=== PATIENT | female | born 1995 | race African-American/Black ===

== ENCOUNTER 2021-11-02 09:10 | Emergency (ER) | payer SELFPAY ==
[~2021-11-02] VITALS: Ht 157.5 cm; Wt 60.0 kg
[2021-11-02 09:48] VITALS: BP 112/60
[2021-11-02] MEDS ORDERED: cefTRIAXone IM 500 MG VIAL. IM ONE (10:15)
--- NOTE | 2021-11-02 10:50 | PHYS DOC ---
Past Medical History Past Surgical History: No Surgical History General Adult EDM: Chief Complaint: TEST HPI: HPI: Patient is a 26 year old female who presents with had small vaginal bleeding after intercourse couple days ago. She is wanting a test here today. She does have the Nexplanon implant for control that is due to come out next week after has been in for 3 years. Patient denies abdominal pain, nausea, vomiting, diarrhea, breast pain, back pain, urinary symptoms, abnormal vaginal discharge, concern for STD, fever. Denies any type of pain at this time. Review of Systems: Review of Systems: Constitutional: Denies fever or chills. [] Eyes: Denies change in visual acuity. [] HENT: Denies nasal congestion or sore throat. [] Respiratory: Denies cough or shortness of breath. [] Cardiovascular: Denies chest pain or edema. [] GI: Denies abdominal pain, nausea, vomiting, bloody stools or diarrhea. [] : Denies dysuria. + Bleeding after intercourse, + wanting test [] Musculoskeletal: Denies back pain or joint pain. [] Integument: Denies rash. [] Neurologic: Denies headache, focal weakness or sensory changes. [] Endocrine: Denies polyuria or polydipsia. [] Lymphatic: Denies swollen glands. [] Psychiatric: Denies depression or anxiety. [] Heart Score: C/O Chest Pain: No Current Medications: Current Medications Medications (Trade) Dose Ordered Sig/William Start Time Stop Time Status Last Admin Dose Admin Ceftriaxone Sodium (Rocephin Im) 500 mg 1X ONCE 11/02/21 10:15 11/02/21 10:16 Cancel Allergies: Allergies: Allergies Coded Allergies Type Severity Reaction Last Updated Verified No Known Drug Allergies 11/02/21 No Physical Exam: PE: Constitutional: Well developed, well nourished, no acute distress, non-toxic appearance. [] HENT: Normocephalic, atraumatic, bilateral external ears normal, oropharynx moist, no oral exudates, nose normal. [] Eyes: PERRLA, EOMI, conjunctiva normal, no discharge. [] Neck: Normal range of motion, no tenderness, supple, no stridor. [] Cardiovascular:Heart rate regular rhythm, no murmur [] Lungs & Thorax: Bilateral breath sounds clear to auscultation [] Abdomen: Bowel sounds normal, soft, no tenderness, no masses, no pulsatile masses. [] Skin: Warm, dry, no erythema, no rash. [] Back: No tenderness, no CVA tenderness. [] Extremities: No tenderness, no cyanosis, no clubbing, ROM intact, no edema. [] Neurologic: Alert and oriented X 3, normal motor function, normal sensory function, no focal deficits noted. [] Psychologic: Affect normal, judgement normal, mood normal. [] Normal physical exam Current Patient Data: Labs: Laboratory Tests Test 11/02/21 09:49 POC Urine HCG, Qualitative Hcg negative (Negative) Vital Signs: Vital Signs Date Time Temp Pulse Resp B/P (MAP) Pulse Ox O2 Delivery O2 Flow Rate FiO2 11/02/21 09:48 98.0 78 20 112/60 (77) 98 Room Air 98.0 EKG: EKG: [] Radiology/Procedures: Radiology/Procedures: [] Course & Med Decision Making: Course & Med Decision Making Pertinent Labs and Imaging studies reviewed. (See chart for details) See HPI. Alert and oriented x4. Ambulatory steady gait. Skin pink warm and dry. No CVA tenderness. Vital signs are within normal limits. Abdomen is soft and nontender. [] Dragon Disclaimer: Dragon Disclaimer: This electronic medical record was generated, in whole or in part, using a voice recognition dictation system. Departure Departure Impression: Primary Impression: test negative Disposition: HOME / SELF CARE / HOMELESS Condition: STABLE Referrals: NO PCP (PCP) Patient Instructions: Tests Additional Instructions: Follow-up with an [facility] if needed. Your test today was negative. KATHRINE COOPER STRAPPER OPERATOR November 02, 2021 10:50
[2021-11-02 11:30] LABS: BACTERIA,URINE 0 /HPF (0-FEW)
== END 2021-11-02 11:03 | disposition home or self-care (01) ==
LOC: ER 09:10
DX: Z32.02 Encounter for pregnancy test, result negative (principal); N93.8 Other specified abnormal uterine and vaginal bleeding
CPT/HCPCS: 81001; 81025; 87086; 87147; 99283